=== PATIENT | male | born 1950 | race Asian ===

== ENCOUNTER 2017-11-23 05:52 | Emergency (ER) | payer BC, MEDICARE ==
[~2017-11-23] VITALS: Ht 165.1 cm; Wt 60.3 kg
[~2017-11-23 05:52] MED LIST: ASPI81TA2 PO
[2017-11-23 05:55] VITALS: BP_SYST 135
[2017-11-23] MEDS ORDERED: ONDANSETRON HCL 4 MG/2 ML VIAL IVP ONE (06:30)
[2017-11-23] MEDS ORDERED: NACL 0.9% 1,000 ML IV ONE ×2 (06:30→09:00)
[2017-11-23 06:50] LABS: BASOPHILS % (AUTO) 0.5 % (0.0-2.0); EOSINOPHILS # (AUTO) 0.2 K/uL (0.0-0.4); EOSINOPHILS % (AUTO) 3.2 % (0.0-4.0); HEMATOCRIT 39.2 % (36-54); HEMOGLOBIN 13.3 g/dL (14.0-18.0); LYMPHOCYTES % (AUTO) 17.1 % (20.5-51.5); MEAN CORPUSCULAR HEMOGLOBIN 32 pg (27-31); MEAN CORPUSCULAR HGB CONC 34 % (32-36); MEAN CORPUSCULAR VOLUME 93 fL (79.0-98.0); MONOCYTES # (AUTO) 0.5 K/uL (0.0-1.0); MONOCYTES % (AUTO) 9.2 % (1.7-9.3); NEUTROPHILS # (AUTO) 4.1 K/uL (1.8-7.7); PLATELET COUNT (AUTO) 135 K/uL (130-430); RED BLOOD CELL COUNT(AUTO) 4.22 MIL/uL (4.2-6.2); RED CELL DISTRIBUTION WIDTH 13.4 % (9.0-15.0); WHITE BLOOD COUNT (AUTO) 5.8 K/uL (4.8-10.8)
[2017-11-23 07:16] LABS: CALCIUM 8.4 mg/dL (8.4-11.0); CREATININE 1.02 mg/dL (0.55-1.30); POTASSIUM 3.6 mmol/L (3.5-5.1)
[2017-11-23 07:29] LABS: ALBUMIN 3.3 g/dL (3.4-4.8)
[2017-11-23 07:51] LABS: BILIRUBIN,URINE NEGATIVE (NEGATIVE); BLOOD, URINE NEGATIVE (NEGATIVE); CLARITY/URINE SL HAZY (CLEAR); COLOR,URINE YELLOW (YELLOW); GLUCOSE,URINE NEGATIVE (NEGATIVE); KETONES,URINE NEGATIVE (NEGATIVE); LEUKOCYTE ESTERASE ,URINE NEGATIVE (NEGATIVE); NITRITE, URINE NEGATIVE (NEGATIVE); PROTEIN URINE NEGATIVE (NEGATIVE); UROBILINOGEN,URINE 0.2 (0.2-1.0)
[2017-11-23 08:11] LABS: RBC,URINE 0-3 /HPF (0-3); WBC,URINE 0-3 /HPF (0-3)
[2017-11-23 08:12] LABS: BACTERIA,URINE RARE /HPF (None Seen); URINE AMORPHOUS PHOSPHATES 2+ /HPF (None Seen)
[2017-11-23 08:13] LABS: MUCUS,URINE None Seen /LPF (None Seen)
[2017-11-23 10:29] VITALS: BP_SYST 150
== END 2017-11-23 10:29 | disposition home or self-care (01) ==
LOC: SED 05:52
DX: E86.0 Dehydration (principal); R55 Syncope and collapse; I10 Essential (primary) hypertension; Z86.79 Personal history of other diseases of the circulatory system; Z79.82 Long term (current) use of aspirin
CPT/HCPCS: 36415; 70450; 71045; 80053; 81000; 83605; 84484; 85025; 85379; 87040; 93005; 96360; 96361; 99285; J2405; J7030